=== PATIENT | male | born 1950 | race Caucasian/White ===

== ENCOUNTER 2017-12-21 05:20 | Inpatient (IN) | payer BC, MEDICARE ==
[2017-12-21] MEDS ORDERED: Acetaminophen 500 MG Tab PO ONE (05:45)
[2017-12-21] MEDS ORDERED: Scopolamine 1.5 MG Transdermal Patch TOP SCH (05:45)
[2017-12-21] MEDS ORDERED: Gabapentin 300 MG Cap PO ONE (05:45)
[2017-12-21] MEDS ORDERED: Lactated Ringers 1,000 ML IV SCH (06:00)
[2017-12-21] MEDS ORDERED: Povidone-Iodine 10% Soln 118.25 ML Bottle ONE (06:43)
[2017-12-21] MEDS ORDERED: Thrombin (Bovine) 5,000 Unit Kit ONE ×2 (06:43→06:45)
[2017-12-21] MEDS ORDERED: Albuterol/Ipratropium 3.0-0.5 MG/3 ML Neb Soln NEB ONE (07:15)
[2017-12-21] MEDS ORDERED: Ondansetron 4 MG/2 ML SDV ONE (07:17)
[2017-12-21] MEDS ORDERED: Neostigmine Methylsulfate 1 MG/ML 5 ML Syringe ONE (07:17)
[2017-12-21] MEDS ORDERED: Rocuronium 50 MG/5 ML Vial ONE ×2 (07:17→09:20)
[2017-12-21] MEDS ORDERED: Glycopyrrolate 0.2 MG/ML 5 ML MDV ONE (07:17)
[2017-12-21] MEDS ORDERED: Dexamethasone 4 MG/ML SDV ONE (07:17)
[2017-12-21] MEDS ORDERED: Propofol 200 MG/20 ML SDV ONE (07:17)
[2017-12-21] MEDS ORDERED: fentaNYL 250 MCG/5 ML SDV ONE (07:17)
[2017-12-21] MEDS ORDERED: ceFAZolin 2 GM in Premix Bag 1 BAG IV ONE (07:30)
[2017-12-21] MEDS ORDERED: Ketamine 500 MG/5 ML MDV IV SCH (08:00)
[2017-12-21] MEDS: Tranexamic Acid 720 MG in Sodium Chloride 0.9% 50 ML IV SCH ×2 (08:00→11:00)
[2017-12-21] MEDS ORDERED: Linezolid 200 MG/100 ML Bag IRR ONE (08:57)
[2017-12-21] MEDS ORDERED: Lactated Ringers 1,000 ML ONE (10:27)
[2017-12-21] MEDS ORDERED: HYDROmorphone/Normal Saline 15 MG/30 ML PCA IV PRN (10:36)
[2017-12-21] MEDS ORDERED: Naloxone 0.4 MG/ML SDV IVPUSH PRN (10:36)
[2017-12-21] MEDS ORDERED: hydrOXYzine HCl 100 MG/2 ML SDV IM ONE (11:15)
[2017-12-21] MEDS ORDERED: LORazepam 2 MG/ML SDV IVPUSH PRN (11:17)
[2017-12-21] MEDS ORDERED: hydrOXYzine HCl 100 MG/2 ML SDV IM PRN (12:05)
[2017-12-21] MEDS ORDERED: Ondansetron 4 MG/2 ML SDV IV PRN (12:05)
[2017-12-21] MEDS ORDERED: Nitroglycerin 0.4 MG Tab.SL SL PRN (12:06)
[2017-12-21] MEDS ORDERED: Cyclobenzaprine 10 MG Tab PO PRN (12:06)
[2017-12-21] MEDS ORDERED: Albuterol/Ipratropium 3.0-0.5 MG/3 ML Neb Soln INH PRN (12:07)
[2017-12-21] MEDS: Dextrose 5%-Lactated Ringers 1,000 ML IV SCH ×2 (12:39→20:06)
[2017-12-21] MEDS: SCOPOLAMINE PATCH CHECK TOP SCH (14:20)
[2017-12-21] MEDS: Acetaminophen 500 MG Tab PO SCH ×2 (14:23→20:45)
[2017-12-21] MEDS: Pantoprazole 40 MG Vial IV SCH (14:23)
[2017-12-21] MEDS: Gabapentin 300 MG Cap PO SCH ×2 (14:23→21:58)
[2017-12-21] MEDS ORDERED: ceFAZolin 2 GM in Premix Bag 1 BAG IV SCH (15:30)
[2017-12-21] MEDS: ceFAZolin 2 GM in Sodium Chloride 0.9% 50 ML IV SCH ×2 (16:03→23:13)
[2017-12-21] MEDS: Albuterol/Ipratropium 3.0-0.5 MG/3 ML Neb Soln INH SCH ×2 (16:50→21:54)
--- NOTE | 2017-12-21 18:18 | OR ---
DATE OF PROCEDURE: 12/21/2017 PREOPERATIVE DIAGNOSES: 1. Spondylolisthesis, L4-L5. 2. Lumbar foraminal stenosis, L4-L5. 3. Lumbar radiculopathy, L4-L5. POSTOPERATIVE DIAGNOSES: 1. Spondylolisthesis, L4-L5. 2. Lumbar foraminal stenosis, L4-L5. 3. Lumbar radiculopathy, L4-L5. PROCEDURE: 1. Anterior lumbar interbody fusion, L4-L5. 2. Interbody device placement, L4-L5. 3. Anterior segmental instrumentation L4-L5. 4. Allograft using Globus Signify L4-L5. CO-SURGEON: Geronimo Fox MD. ANESTHESIA: General endotracheal intubation. FLUIDS: Lactated Ringer solution. ESTIMATED BLOOD LOSS: 50 mL. COMPLICATION: None. SPECIMEN: None. DISCHARGE DISPOSITION: Stable to PACU. INSTRUMENTATION: Globus Magnify-S 26 x 34, 15 degree, 14-18 mm implant with 3 hydroxyapatite-coated variable angle 5.5 x 35 mm screws. INDICATIONS FOR THE PROCEDURE: The patient was seen preoperatively by myself in the clinic. He had failed nonoperative treatment. He had a mobile spondylolisthesis which was giving him a great deal of back pain as well as radicular symptoms. Risks and benefits of the procedure were explained to the patient. Informed consent was obtained. Preoperative imaging confirmed the above-mentioned diagnosis. DESCRIPTION OF PROCEDURE: The patient was seen preoperatively by myself and the anesthesia staff in the preop holding area where the operative site was marked. He was brought to the operative suite by Anesthesia staff where general anesthesia was administered. Sterile Metcalf catheter was placed. Neuromonitoring leads were placed, and they were normal at baseline. During the midpoint of the case, there was decreased sensory on the left side, and a docking screw was removed. Blood flow was increased and monitoring went back to normal. The fluoroscopy unit was draped in a sterile manner. Time-out was called identifying the correct patient, the correct procedure, the correct site, and that the antibiotics were begun within appropriate period of time after prepping and draping. Please see Dr. Raymundo Fox's notes for exposure. After exposure was completed and a spinal needle was used to identify the disk space on the lateral fluoroscopy, I then used the Bovie electrocautery unit and went through the anterior annulus at L4 and L5 and then used a knife to go further deeper and then used a narrow Cosby along the endplates to loosen up the disk. I then used a pituitary to remove as much as I could of the disk. There was very little disk left because there was vacuum disk phenomenon secondary to longstanding spondylolisthesis. I did use pituitaries and Kerrison rongeurs to remove the remainder of the disk space and then used curettes as well. After disk space preparation, I inserted multiple sara going from 9 to 15 and then used lateral fluoroscopy to visualize this. Because of the pattern of the inferior disk, I then adjusted my sara starting back again from 11 to 15 for more of a better angle. This helped with the spondylolisthesis reduction as well. I then inserted a 25 x 31, 15 degree, 13 and 15 mm implant and then inserted a 26 x 34, 15 mm, 15 degree implant. This appeared to have the best coverage on fluoroscopy on AP and lateral. I then removed the trial and then placed my final interbody device and then expanded under direct visualization until the torque limiter prevented any further distraction. This had been packed with Magnify Signify S as well. I then awl'd, tapped, and placed my screws. They had good bite because the endplates were extremely sclerosed after the long-standing spondylolisthesis. We took our final films. Please see Dr. Raymundo Fox's note for closure. Armando Fox DO /[id number]
[2017-12-21] MEDS: ADVAIR 250/50 INHALER (PTOM) INH SCH (21:58)
[2017-12-21] MEDS ORDERED: Lactated Ringers 500 ML IV ONE (22:30)
[2017-12-22] MEDS ORDERED: Lactated Ringers 500 ML IV ONE (02:30)
[2017-12-22] MEDS: Acetaminophen 500 MG Tab PO SCH ×2 (02:30→07:53)
[2017-12-22] MEDS: Albuterol/Ipratropium 3.0-0.5 MG/3 ML Neb Soln INH SCH ×4 (07:39→20:23)
[2017-12-22] MEDS: ceFAZolin 2 GM in Sodium Chloride 0.9% 50 ML IV SCH (07:52)
[2017-12-22] MEDS ORDERED: Dextrose 5%-Lactated Ringers 1,000 ML IV SCH (08:25)
--- NOTE | 2017-12-22 08:46 | PCM.PN ---
- General Info Date of Service: 12/22/17 Functional Status: Reports: Pain Controlled - Review of Systems General: Reports: No Symptoms HEENT: Reports: No Symptoms Pulmonary: Reports: No Symptoms Cardiovascular: Reports: No Symptoms Gastrointestinal: Reports: Abdominal Pain Genitourinary: Reports: No Symptoms Musculoskeletal: Reports: Back Pain Skin: Reports: No Symptoms Neurological: Reports: No Symptoms Psychiatric: Reports: No Symptoms - Patient Data Vitals - Most Recent: Last Vital Signs Temp 96.2 F 12/22/17 07:55 Pulse 74 12/22/17 07:55 Resp 16 12/22/17 07:55 BP 100/60 12/22/17 07:55 Pulse Ox 98 12/22/17 07:55 Weight - Most Recent: 146 lb 11.2 oz I&O - Last 24 Hours: Intake & Output 12/21/17 12/22/17 12/22/17 22:59 06:59 14:59 Intake Total 1279 2419 50 Output Total 350 670 Balance 929 1749 50 Med Orders - Current: Current Medications Acetaminophen (Tylenol Extra Strength) 1,000 mg PO Q6H [facility] Last Admin: 12/22/17 07:53 Dose: 1,000 mg Albuterol/Ipratropium (Duoneb 3.0-0.5 Mg/3 Ml) 3 ml INH QIDRT [facility] Last Admin: 12/22/17 07:39 Dose: 3 ml Albuterol/Ipratropium (Duoneb 3.0-0.5 Mg/3 Ml) 3 ml INH ASDIRECTED PRN PRN Reason: Shortness of Breath Aspirin (Halfprin) 81 mg PO DAILY [facility] Cyclobenzaprine HCl (Flexeril) 10 mg PO Q6H PRN PRN Reason: MUSCLE SPASM Docusate Sodium (Colace) 100 mg PO BID [facility] Gabapentin (Neurontin) 300 mg PO TID [facility] Last Admin: 12/21/17 21:58 Dose: 300 mg Hydroxyzine HCl (Vistaril) 100 mg IM Q4H PRN PRN Reason: PAIN Dextrose/Lactated Ringer's (Dextrose 5%-Lactated Ringers) 1,000 mls @ 100 mls/ hr IV ASDIRECTED [facility] Lorazepam (Ativan) 1 mg IVPUSH Q2H PRN PRN Reason: SPASM Last Admin: 12/21/17 11:24 Dose: 1 mg Naloxone HCl (Narcan) 0.1 mg IVPUSH Q2M PRN PRN Reason: Respiratory Distress Nitroglycerin (Nitrostat) 0.4 mg SL ASDIRECTED PRN PRN Reason: CHEST PAIN Scopolamine Patch (Check) 1 each TOP DAILY [facility] Stop: 12/22/17 11:01 Last Admin: 12/21/17 14:20 Dose: Not Given Ondansetron HCl (Zofran) 4 mg IV Q4H PRN PRN Reason: N/V Oxycodone/Acetaminophen (Percocet 325-5 Mg) 1 - 2 tab PO Q4H PRN PRN Reason: paiin Pantoprazole Sodium (Protonix Iv) 40 mg IV Q24H [facility] Last Admin: 12/21/17 14:23 Dose: 40 mg Advair 250/50 (Inhaler (Ptom)) 0 each INH BIDRT [facility] Last Admin: 12/21/17 21:58 Dose: 1 each Scopolamine (Transderm-Scop) 1.5 mg TOP Q72H [facility] Last Admin: 12/21/17 05:58 Dose: 1.5 mg Discontinued Medications Acetaminophen (Tylenol Extra Strength) 1,000 mg PO ONETIME ONE Stop: 12/21/17 05:46 Last Admin: 12/21/17 05:57 Dose: 1,000 mg Albuterol/Ipratropium (Duoneb 3.0-0.5 Mg/3 Ml) 3 ml NEB ONETIME ONE Stop: 12/21/17 07:16 Last Admin: 12/21/17 16:59 Dose: Not Given Dexamethasone (Dexamethasone) Confirm Administered Dose 4 mg .ROUTE .STK-MED ONE Stop: 12/21/17 07:18 Fentanyl (Sublimaze) Confirm Administered Dose 250 mcg .ROUTE .STK-MED ONE Stop: 12/21/17 07:18 Gabapentin (Neurontin) 300 mg PO ONETIME ONE Stop: 12/21/17 05:46 Last Admin: 12/21/17 05:56 Dose: 300 mg Glycopyrrolate (Robinul) Confirm Administered Dose 1 mg .ROUTE .STK-MED ONE Stop: 12/21/17 07:18 Hydromorphone HCl (Dilaudid Manager Plan 15 Mg In Ns 30 Ml) 0 mg IV ASDIRECTED PRN; Protocol PRN Reason: Pain Last Admin: 12/21/17 11:06 Dose: 0.3 mg Hydroxyzine HCl (Vistaril) 75 mg IM ONETIME ONE Stop: 12/21/17 11:16 Last Admin: 12/21/17 11:05 Dose: 75 mg Cefazolin Sodium/Dextrose 2 gm (/ Premix) 50 mls @ 100 mls/hr IV ONETIME ONE Stop: 12/21/17 07:59 Last Admin: 12/21/17 08:05 Dose: 100 mls/hr Lactated Ringer's (Ringers, Lactated) 1,000 mls @ 0 mls/hr IV ASDIRECTED [facility] Last Admin: 12/21/17 06:49 Dose: 100 mls/hr Tranexamic Acid 720 mg/ Sodium (Chloride) 57.2 mls @ 228.8 mls/hr IV Q3H [facility] Stop: 12/21/17 11:14 Last Admin: 12/21/17 11:00 Dose: 228.8 mls/hr Ketamine HCl 100 mg/ Sodium (Chloride) 100 mls @ 20.61 mls/hr IV ASDIRECTED [facility] Linezolid (Zyvox) Confirm Administered Dose 300 mls @ as directed .ROUTE .STK- MED ONE Stop: 12/21/17 06:44 Lactated Ringer's (Ringers, Lactated) Confirm Administered Dose 1,000 mls @ as directed .ROUTE .STK-MED ONE Stop: 12/21/17 10:28 Dextrose/Lactated Ringer's (Dextrose 5%-Lactated Ringers) 1,000 mls @ 150 mls/ hr IV ASDIRECTED [facility] Last Admin: 12/21/17 20:06 Dose: 150 mls/hr Cefazolin Sodium 2 gm/ Sodium (Chloride) 50 mls @ 100 mls/hr IV Q8H [facility] Stop: 12/22/17 07:59 Last Admin: 12/22/17 07:52 Dose: 100 mls/hr Lactated Ringer's (Ringers, Lactated) 500 mls @ 500 mls/hr IV ONETIME ONE Stop: 12/21/17 23:29 Last Admin: 12/21/17 22:37 Dose: 500 mls/hr Lactated Ringer's (Ringers, Lactated) 500 mls @ 500 mls/hr IV ONETIME ONE Stop: 12/22/17 03:29 Last Admin: 12/22/17 02:31 Dose: 500 mls/hr Ketamine HCl (Ketalar) 34 mg IV ASDIRECTED [facility] Linezolid (Zyvox) 200 mg IRR .STK-MED ONE Stop: 12/21/17 08:58 Last Admin: 12/21/17 08:57 Dose: 200 mg Neostigmine Methylsulfate (Neostigmine) Confirm Administered Dose 5 mg .ROUTE .STK-MED ONE Stop: 12/21/17 07:18 Ondansetron HCl (Zofran) Confirm Administered Dose 4 mg .ROUTE .STK-MED ONE Stop: 12/21/17 07:18 Povidone Iodine (Betadine 10% Soln) Confirm Administered Dose 1 ml .ROUTE .STK- MED ONE Stop: 12/21/17 06:44 Propofol (Diprivan 20 Ml) Confirm Administered Dose 200 mg .ROUTE .STK-MED ONE Stop: 12/21/17 07:18 Rocuronium [place] (Zemuron) Confirm Administered Dose 50 mg .ROUTE .STK-MED ONE Stop: 12/21/17 07:18 Rocuronium [place] (Zemuron) Confirm Administered Dose 50 mg .ROUTE .STK-MED ONE Stop: 12/21/17 09:21 Thrombin (Thrombin-Jmi) Confirm Administered Dose 10,000 unit .ROUTE .STK-MED ONE Stop: 12/21/17 06:44 Thrombin (Thrombin-Jmi) Confirm Administered Dose 5,000 unit .ROUTE .STK-MED ONE Stop: 12/21/17 06:46 - Exam General: Alert, Oriented HEENT: Pupils Equal, Mucous Membr. Moist/[place] Neck: Supple, Trachea Midline Lungs: Normal Respiratory Effort Extremities: Normal Inspection, Normal Range of Motion, Non-Tender, No Pedal Edema, Normal Capillary Refill Peripheral Pulses: 2+: Dorsalis Pedis (L), Dorsalis Pedis (R) Neurological: No New Focal Deficit Psy/Mental Status: Alert, Normal Affect, Normal Mood - Problem List Review Problem List Initiated/Reviewed/Updated: Yes - My Orders Last 24 Hours: My Active Orders 12/21/17 11:00 Non-Formulary Medication [NF Drug] 1 each TOP DAILY - Plan Plan:: assessment: Postoperative day 1 anterior lumbar interbody fusion at L4-5 Plan:Physical therapy and occupational therapy today. Increased ambulation as tolerated. Will defer to Dr. Geronimo Fox for Metcalf removal, switching off the SALESPERSON JEWELRY to oral pain medication, and advancement of diet.
[2017-12-22] MEDS: Gabapentin 300 MG Cap PO SCH ×3 (09:01→20:18)
[2017-12-22] MEDS: Aspirin 81 MG Tab.EC PO SCH (09:02)
[2017-12-22] MEDS: SCOPOLAMINE PATCH CHECK TOP SCH (09:02)
[2017-12-22] MEDS: ADVAIR 250/50 INHALER (PTOM) INH SCH ×2 (09:02→20:40)
[2017-12-22] MEDS: Docusate Sodium 100 MG Cap PO SCH ×2 (09:05→20:17)
--- NOTE | 2017-12-22 09:11 | US ---
VL Duplex Lwr Ext Veins Ltd Lt FINDINGS: Duplex imaging was performed from the left common femoral through the popliteal veins. The veins demonstrate complete compressibility without evidence of intraluminal thrombus. There is normal phasic variation of the waveforms with respiration. There is augmented flow with calf compression. IMPRESSION: There is no evidence for left lower extremity deep venous thrombosis.
[2017-12-22] MEDS: Acetaminophen/oxyCODONE 325-5 MG Tab PO PRN ×3 (09:32→18:15)
--- NOTE | 2017-12-22 10:22 | PN ---
DATE OF SERVICE: 12/22/2017 SUBJECTIVE: Cheko is postoperative day 1 following an ALIF. He has had decreased urine of 1150, it had gradually increased. The pain is controlled. Reported some left leg pain. Duplex scan was ordered and was negative. REVIEW OF SYSTEMS: Remainder of review of systems negative for any pertinent positives and negatives. OBJECTIVE: GENERAL: Cheko Paniagua is a 67-year-old male, alert and orientated. VITAL SIGNS: TPR 96.2, 74, 16, blood pressure 100/60. HEENT: Negative. NECK: Supple. HEART: Regular rate and rhythm. LUNGS: Clear. ABDOMEN: Dressing dry and intact. Abdominal binder is on. EXTREMITIES: Dorsalis pedal pulse left palpable. Foot warm and dry. Without peripheral edema. ASSESSMENT: Anterior lumbar interbody fusion L4-L5, interbody device placement L4-L5, anterior segmental instrumentation L4-L5 and allograft using Globus Signify L4-L5 for spondylolisthesis L4-L5, lumbar foraminal stenosis L4-L5, and lumbar radiculopathy L4-L5. Date of surgery 12/21/2017. Surgeons; Raymundo Fox MD, and Armando Fox DO. PLAN: 1. Discontinue CPA TAX and continuous pulse ox. 2. Percocet 5/325 mg 1 to 2 every 4 hours p.r.n. pain. 3. Decrease IV to 100 mL per hour. 4. Regular diet. 5. Discontinue Metcalf catheter. 6. Good pulmonary toilet. 7. We will evaluate. 8. Colace 100 mg b.i.d. 9. We will evaluate p.r.n. or in a.m. Greer Wilson PA-C /[id number]
[2017-12-22] MEDS: Pantoprazole 40 MG Vial IV SCH (14:10)
[2017-12-23] MEDS: Acetaminophen/oxyCODONE 325-5 MG Tab PO PRN ×3 (00:06→12:10)
[2017-12-23] MEDS: Albuterol/Ipratropium 3.0-0.5 MG/3 ML Neb Soln INH SCH ×2 (07:11→11:03)
[2017-12-23] MEDS: ADVAIR 250/50 INHALER (PTOM) INH SCH ×2 (08:41→08:45)
[2017-12-23] MEDS: Gabapentin 300 MG Cap PO SCH (08:42)
[2017-12-23] MEDS: Aspirin 81 MG Tab.EC PO SCH (08:42)
[2017-12-23] MEDS: Docusate Sodium 100 MG Cap PO SCH (08:42)
--- NOTE | 2017-12-23 09:44 | DISCH ---
ADMISSION DIAGNOSES: 1. Chronic back pain. 2. Spondylolisthesis at L4-5. 3. Lumbar foraminal stenosis at L4-5. 4. Lumbar radiculopathy at L4-5. DISCHARGE DIAGNOSES: 1. Anterior lumbar interbody fusion at L4-5. 2. Interbody device placement at L4-L5. 3. Anterior segmental instrumentation of L4-5. 4. Allograft using Globus Signify at L4-5. HISTORY: Glenn Paniagua is a male who had a failed nonoperative treatment of lower back. After preoperative evaluation and discussion of possible risks and possible complications, he wished to proceed with surgical procedure. HOSPITAL COURSE: Cheko had his surgery on 12/21/2017. He had no intraoperative complications. Postop, he did well. On postop day #1, he was started on a step-4 gastric bypass diet. Physical Therapy has seen him. BREAKDOWN PERSON was discontinued along with Metcalf catheter. He was started on stool softener and oral pain medication. On postop day #2, he was able to be discharged to home without any complications. PHYSICAL EXAMINATION: GENERAL: Glenn Paniagua is a 67-year-old male. VITAL SIGNS: Height is 5 feet 8.11 inches. Weight is 146 pounds. TPR is 97.4, 84, 20, and blood pressure 93/59. HEENT: Negative. NECK: Supple. HEART: Regular rate and rhythm. LUNGS: Clear. ABDOMEN: Incision looks good. Abdominal binder is on and back brace is on. EXTREMITIES: Equal muscle strength in right and left lower extremities. Postop Ortho exam, per Dr. Armando Fox. FOLLOWUP APPOINTMENT: With Raymundo Fox MD, on 12/29/2017, at 10:30 a.m. DISCHARGE MEDICATIONS: Home Medications; 1. Percocet 5/325 one to two every 4 hours p.r.n. pain, #40. 2. Colace 100 mg oral b.i.d. Start his home medications of; 1. Albuterol inhaler 2 puffs 4 times a day p.r.n. shortness of breath. 2. Aspirin 81 mg daily. 3. Advair 250/50 one puff twice a day. 4. Claritin 10 mg daily. 5. Mobic 15 mg oral daily p.r.n. pain. 6. Nitroglycerin 0.4 mg sublingual, use as directed for chest pain. 7. Imitrex 50 mg oral 4 times daily p.r.n. headache. DISCHARGE DIET: Usual diet as tolerated. Drink 8 to 10 glasses of water a day. ACTIVITY: No lifting greater than 10 pounds for 6 weeks. Other activity after discharge comment recommends that they follow the directions of Physical Therapy and Dr. Armando Fox. Driving, do not drive while on pain medication. Shower/bathing, may shower. DISCHARGE INSTRUCTIONS: Notify provider if any fever, increased pain, swelling, redness, drainage, nausea, or vomiting. Keep site clean and dry. Wear abdominal binder for 6 weeks and then as tolerated. Use incentive spirometer 10 times every hour while awake for 1 week.
== END 2017-12-23 12:11 | disposition home or self-care (01) | DRG 304 ==
LOC: JP.SDS 05:20 → JP.SDSSCHI 05:20 → EDSTATUS 09:15 → JP.MS 10:45
PROVIDERS: ADMIT Orthopaedic Surgery; ATTEND Surgery
PROC: 0SG00A0 Fusion of Lumbar Vertebral Joint with Interbody Fusion Device, Anterior Approach, Anterior Column, Open Approach (ICD-10-PCS; principal; 2017-12-21)
PROC: 0ST20ZZ Resection of Lumbar Vertebral Disc, Open Approach (ICD-10-PCS; principal; 2017-12-21)
PROC: 4A11X4G Monitoring of Peripheral Nervous Electrical Activity, Intraoperative, External Approach (ICD-10-PCS; principal; 2017-12-21)
DX: M43.16 Spondylolisthesis, lumbar region (principal); M48.061 Spinal stenosis, lumbar region without neurogenic claudication; M54.5 Low back pain; M54.16 Radiculopathy, lumbar region; G89.29 Other chronic pain; Z88.8 Allergy status to other drugs, medicaments and biological substances; Z79.82 Long term (current) use of aspirin; Z79.899 Other long term (current) drug therapy
CPT/HCPCS: 36415; 76001; 86850; 86900; 86901; 86920; 86922; 93971-26-LT; 93971-LT; 94640; 94762; 97116-GP; 97161-GP; 97165-GO; 97530-GP; 97535-GP; A9270-GY; C1713; C9113; J0690; J1100; J1170; J2020; J2060; J2405; J2704; J2710; J3010; J3410; J7030; J7042; J7050; J7120; J7620

== ENCOUNTER 2017-12-24 21:30 | Emergency (ER) | payer BC, MEDICARE ==
[2017-12-24] MEDS ORDERED: Furosemide 20 MG Tab PO ONE (23:47)
--- NOTE | 2017-12-24 23:53 | EDM.PDOC ---
ED HPI GENERAL MEDICAL PROBLEM - General Chief Complaint: General Stated Complaint: SWELLING AFTER BACK SURGERY Time Seen by Provider: 12/24/17 23:31 Source of Information: Reports: Patient, Family History Limitations: Reports: No Limitations - History of Present Illness INITIAL COMMENTS - FREE TEXT/NARRATIVE: This patient was brought in by his because of some swelling mostly in the penis and some in the feet. He had recent back surgery and since then has spent his time either being up on his feet or sitting upright any anything else hurts his back. Today they've noticed a great deal of swelling in the penis and a little bit less so in his feet. He's not been sitting with his feet up. There is no history of congestive heart failure - Related Data Allergies Allergy/AdvReac Type Severity Reaction Status Date / Time simvastatin AdvReac Muscle Verified 12/20/17 12:20 Aches Home Meds: Home Meds Albuterol [IJP: Ventolin HFA] 2 puff INH QID PRN 07/28/17 [History] Aspirin [Halfprin] 81 mg PO DAILY 07/28/17 [History] Fluticasone/Salmeterol [Advair 250-50 Diskus] 1 puff INH BID 07/28/17 [History] Loratadine [Claritin] 10 mg PO DAILY 07/28/17 [History] Meloxicam [Mobic] 15 mg PO DAILY PRN 07/28/17 [History] Nitroglycerin 0.4 mg SL .Q5MIN PRN 07/28/17 [History] SUMAtriptan [Imitrex] 50 mg PO QID PRN 07/28/17 [History] Acetaminophen/oxyCODONE [Percocet 325-5 MG] 1 - 2 tab PO Q4H PRN #40 tablet [Rx] Docusate Sodium [Colace] 100 mg PO BID #100 cap 12/23/17 [Rx] Past Medical History HEENT History: Reports: Hard of Hearing, Impaired Vision Other HEENT History: wears glasses/hearing aides Cardiovascular History: Reports: High Cholesterol, SOB on Exertion, Syncope Respiratory History: Reports: Asthma Gastrointestinal History: Reports: Chronic Constipation Musculoskeletal History: Reports: Back Pain, Chronic Neurological History: Reports: Headaches, Chronic, Migraines, Vertigo - Infectious Disease History Infectious Disease History: Reports: Chicken Pox, Measles - Past Surgical History HEENT Surgical History: Reports: None Cardiovascular Surgical History: Reports: None Respiratory Surgical History: Reports: None GI Surgical History: Reports: Colonoscopy Neurological Surgical History: Reports: None Other Musculoskeletal Surgeries/Procedures:: ALIF back surgery on LAST Wednesday Social & Family History - Family History Family Medical History: Noncontributory Oncologic: Reports: Skin - Tobacco Use Smoking Status *Q: Never Smoker Second Hand Smoke Exposure: No - Caffeine Use Caffeine Use: Reports: Coffee - Alcohol Use Number of Drinks Per Day: 0 - Recreational Drug Use Recreational Drug Use: No ED ROS GENERAL - Review of Systems Review Of Systems: See Below Constitutional: Reports: No Symptoms HEENT: Reports: No Symptoms Respiratory: Reports: No Symptoms Cardiovascular: Reports: No Symptoms Endocrine: Reports: No Symptoms GI/Abdominal: Reports: No Symptoms : Reports: Other (See history of present illness) Musculoskeletal: Reports: Other (See history of present illness) Skin: Reports: No Symptoms Neurological: Reports: No Symptoms ED EXAM, GENERAL - Physical Exam Exam: See Below Exam Limited By: No Limitations General Appearance: Alert, Other (Chronically ill-appearing he's sitting bolt upright on the stretcher he moves very very slowly inserted with a stiff back. Mostly I examined him with him standing or sitting upright) Eye Exam: Bilateral Eye: Normal Inspection Throat/Mouth: Normal Oropharynx Head: Atraumatic Neck: Normal Inspection Respiratory/Chest: Lungs Clear Cardiovascular: Regular Rate, Rhythm GI/Abdominal: Soft, Non-Tender (Male) Exam: Other (There is moderate swelling to the penis and the distal shaft of the penis. He appears to be circumcised but because of the swelling of the loose tissue the distal shaft it actually looks like there could be a paraphimosis and was able to flip that over the glans penis.) Extremities: Other (Minimal if any pedal edema) Neurological: Alert, Oriented Psychiatric: Normal Affect Course - Vital Signs Last Recorded V/S: Last Vital Signs Temp 36.4 C 12/24/17 22:33 Pulse 85 12/24/17 22:33 Resp 14 12/24/17 22:33 BP 137/83 12/24/17 22:33 Pulse Ox 94 L 12/24/17 22:33 - Orders/Labs/Meds Meds: Medications Discontinued Medications Generic Name Dose Route Start Last Admin Trade Name Freq PRN Reason Stop Dose Admin Furosemide 20 mg 05/18/18 23:47 12/24/17 23:57 Lasix PO 12/24/17 23:48 20 mg ONETIME ONE Administration Departure - Departure Time of Disposition: 23:50 Disposition: Home, Self-Care 01 Condition: Fair Clinical Impression: Genital edema, male, Pedal edema - Discharge Information Instructions: Edema, [id number] Referrals: PCP,None [Primary Care Provider] - Forms: ED Department Discharge Additional Instructions: take furosemide 20 mg daily for fluid. Try to elevate your legs when you are not up walking. Wear tight underwear to try to put some pressure on the penis and scrotum. Return to the ER if needed otherwise followup with your doctor as planned
== END 2017-12-25 00:07 | disposition home or self-care (01) ==
LOC: JP.ED 21:30
DX: N50.89 Other specified disorders of the male genital organs (principal); E78.00 Pure hypercholesterolemia, unspecified; J45.909 Unspecified asthma, uncomplicated; Z79.82 Long term (current) use of aspirin; Z79.899 Other long term (current) drug therapy; Z88.8 Allergy status to other drugs, medicaments and biological substances
CPT/HCPCS: 99283; A9270